=== PATIENT | male | born 1940 | race Caucasian/White ===

== ENCOUNTER 2019-11-19 15:16 | Emergency (ER) | payer OTHER, BC ==
[~2019-11-19] VITALS: Ht 177.8 cm; Wt 95.3 kg
[2019-11-19 19:05] VITALS: BP 150/86
== END 2019-11-19 19:05 | disposition home or self-care (01) ==
LOC: ER 15:16
DX: J02.9 Acute pharyngitis, unspecified (principal); R13.10 Dysphagia, unspecified; E11.9 Type 2 diabetes mellitus without complications